=== PATIENT | female | born 1985 | race Two or more races ===

== ENCOUNTER 2025-02-22 03:41 | Emergency (ER) | payer OTHER ==
[~2025-02-22] VITALS: Ht 170.2 cm; Wt 79.4 kg
[2025-02-22] MEDS ORDERED: METOCLOPRAMIDE HCL 5 MG/ML VIAL IM STA (04:45)
[2025-02-22] MEDS ORDERED: PROMETHAZINE HCL 50 MG/ML AMPUL IM STA (04:45)
[2025-02-22] MEDS ORDERED: HYOSCYAMINE SULFATE 0.125 MG TAB.SUBL SL STA (04:46)
[2025-02-22] MEDS ORDERED: RINGERS SOLUTION,LACTATED 1,000 ML IV STA (04:46)
[2025-02-22] MEDS ORDERED: FAMOtidine 10 MG/ML (4ML VIAL) IV PUSH STA (04:47)
[2025-02-22 06:11] LABS: BASO % 0.4 % (0.1-1.2); EOS # 0.01 (0.04-0.54); EOS % 0.1 % (0.7-7.0); LYMPH # 0.49 (1.18-3.74); LYMPH % 3.9 % (19.3-53.1); MEAN PLATELET VOLUME 10.50 fl (9.4-12.4); MONO # 1.16 (0.24-0.82); MONO % 9.3 % (4.7-12.5); NEUT # 10.72 (1.56-6.13); NEUT % 86.0 % (34.0-71.1); RED CELL DISTRIBUTION WIDTH 12.2 % (11.6-14.4)
[2025-02-22 06:48] LABS: ALT/SGPT 76.0 U/L (12-78); AST/SGOT 130.0 U/L (15-37); BILIRUBIN TOTAL 0.48 mg/dL (0.3-1.2); BUN CREA RATIO 23.0 (7.0-25.0); CREATININE SERUM 0.62 mg/dL (0.55-1.02); GFR 106.61; GLOBULINA 3.5 G/DL (2.4-3.5); GLUCOSE FASTING 127.0 mg/dL (65-100); OSMOLALITY SERUM 287.0 MOSM/KG (275-295)
[2025-02-22] MEDS ORDERED: HYOSCYAMINE SULFATE 0.125 MG TAB.SUBL SL ONE (07:15)
[2025-02-22] MEDS ORDERED: RINGERS SOLUTION,LACTATED 500 ML IV STA (07:15)
== END 2025-02-22 08:47 | disposition home or self-care (01) ==
LOC: ER 03:41
DX: R11.10 Vomiting, unspecified (principal); R10.13 Epigastric pain
CPT/HCPCS: 36415; 96365; 96372; 99282; J2250; J2765; J3490